=== PATIENT | female | born 1985 | race African-American/Black ===

== ENCOUNTER → 2021-05-08 10:29 | Outpatient (CLI) | payer OTHER, SELFPAY ==
--- NOTE | ~2021-05-08 | US_ITS ---
EXAMINATION: US OB >= 14 weeks Fetus DATE: 05/08/2021 11:05 INDICATION: Uncertain dates. TECHNIQUE: Real-time ultrasound of the pelvis was performed. COMPARISON: None. FINDINGS: There is a single living fetus in vertex presentation. The placenta is anterior, 1.3 cm from the cer vix. There is a small subchorionic hematoma. heart rate is 145 beats per minute (bpm). The amni otic fluid volume is subjectively normal. The following biometric data were obtained: Biparietal diameter (BPD): 3.3 cm; head circumference (HC): 11.9 cm; abdominal circumference (AC): 10 .4 cm; femur length (FL): 2.0 cm. These measurements are concordant. Estimated weight is 145 g +/- 22 g, which correlates with 85th percentile when 10/27/21 is used as estimated date of delivery. As single measurements, these parameters are each equal to the following estimated gestational ages w ith ranges of +/- 2 standard deviations: BPD: 16 weeks 2 days (15 weeks 1 days - 17 weeks 3 days). HC: 15 weeks 6 days (14 weeks 5 days - 17 weeks 1 days). AC: 16 weeks 3 days (14 weeks 5 days - 18 weeks 0 days). FL: 15 weeks 6 days (14 weeks 3 days - 17 weeks 2 days). estimated gestational age based solely on measurements from this exam is 16 weeks 1 days +/- 1 weeks 1 days. IMPRESSION: 1. Single living fetus in vertex presentation. 2. Estimated weight is 145 g +/- 22 g, which correlates with 85th percentile when 10/27/21 is used as estimated date of delivery. 3. Small subchorionic hematoma. 4. Low-lying placenta. Reviewed, dictated and finalized at location A. IMPRESSION: 1. Single living fetus in vertex presentation. 2. Estimated weight is 145 g +/- 22 g, which correlates with 85th percen tile when 10/27/21 is used as estimated date of delivery. 3. Small subchorionic hematoma. 4. Low-lying placenta.
== END ==
PROVIDERS: Visit Provider Nurse Practitioner
DX: Z36.87 Encounter for antenatal screening for uncertain dates (principal); Z3A.16 16 weeks gestation of pregnancy
CPT/HCPCS: 76805

== ENCOUNTER 2021-10-18 09:33 | Outpatient (RCR) | payer OTHER, SELFPAY ==
[2021-09-11 11:14] VITALS: BP 118/72; PULSE 106
[2021-09-16 18:22] VITALS: BP 117/71; PULSE 94
[2021-09-19 11:09] VITALS: BP 124/83; PULSE 102
[2021-09-22 16:58] VITALS: BP 129/80; PULSE 95
[2021-09-25 17:06] VITALS: BP 125/74; PULSE 92
--- NOTE | 2021-09-28 18:13 | PC.NURSE ---
Pt tilted to side.
[2021-09-28 18:33] VITALS: BP 123/73; PULSE 80
[2021-10-01 17:13] VITALS: BP 125/77; PULSE 86
[2021-10-05 17:14] VITALS: BP 120/81; PULSE 96
[2021-10-08 17:33] VITALS: BP 139/81; PULSE 96
[2021-10-12 17:54] VITALS: BP 134/87; PULSE 91
--- NOTE | ~2021-10-18 | US_ITS ---
EXAMINATION: US OB BPP wo non-stress EXAM DATE: 10/18/2021 11:45 INDICATION: GDM; non-reactive NST GDM, nonreactive stress test. 3rd trimester. TECHNIQUE: Pelvic obstetrical transabdominal sonogram was performed by a technologist. There are mu ltiple grayscale and Doppler images available for interpretation. Comparison is made to prior examina tion from 09/16/2021. FINDINGS: There is a single fetus identified in breech presentation with a heart rate of 134 beats pe r minute. The placenta is located in the anterior position. There is no sonographic evidence of retr oplacental hemorrhage identified. BIOPHYSICAL PROFILE (performed by the technologist) breathing (30 sec sustained breathing in 30 minutes): 2 out of 2 movement (3 gross body movements in 30 minutes): 2 out of 2 tone (one episode of okkfpxa-zlhpgbhmh-ekjndks limb movement): 2 out of 2 Amniotic fluid pocket (2 cm): 2 out of 2 Total score: 8 out of 8 IMPRESSION: 1. Single fetus with heart rate of 134 bpm. 2. Normal biophysical profile score of 8 out of 8. Reviewed, dictated and finalized at location A. ILEMAN
--- NOTE | ~2021-10-18 | US_ITS ---
EXAMINATION: US OB BPP wo non-stress DATE: 09/16/2021 18:04 INDICATION: Gestational diabetes, third trimester TECHNIQUE: Real-time pelvic ultrasound was performed. The interpreting radiologist was not present fo r the study. COMPARISON: 05/08/2021 FINDINGS: There is a single living fetus in breech presentation. The placenta is anterior. heart rate is 131 beats per minute (bpm). Biophysical profile performed by the technologist: breathing (30 sec sustained breathing in 30 minutes): 2 out of 2 movement (3 gross body movements in 30 minutes): 2 out of 2 tone (one episode of ddaqkhx-wxrtkzpiz-qdbxynt limb movement): 2 out of 2 Amniotic fluid pocket (2 cm): 2 out of 2 Total score: 8 out of 8 IMPRESSION: 1. Single living fetus in breech presentation. 2. Biophysical profile 8 out of 8. Reviewed, dictated and finalized at location A.
[2021-10-18 11:52] VITALS: BP 139/82; PULSE 87
== END 2021-12-10 09:36 | disposition home or self-care (01) ==
LOC: ANHOBOP 09:33
PROVIDERS: Visit Provider Obstetrics & Gynecology Gynecology
DX: O24.419 Gestational diabetes mellitus in pregnancy, unspecified control (principal); Z3A.34 34 weeks gestation of pregnancy; Z3A.35 35 weeks gestation of pregnancy; Z3A.36 36 weeks gestation of pregnancy; Z3A.37 37 weeks gestation of pregnancy; Z3A.38 38 weeks gestation of pregnancy
CPT/HCPCS: 59025; 76819; J2175; J2210; J2250; J2274; J3010

== ENCOUNTER 2021-10-18 09:33 | Outpatient (CLI) | payer OTHER, SELFPAY ==
[2021-10-18 10:32] LABS: Hemoglobin 12.5 g/dL (12.0-15.0); Immature Granulocyte Absolute 0.04 K/mm3 (0.00-0.031); Lymphocytes Absolute Auto 1.62 K/mm3 (0.9-3.2); Lymphocytes Percent Auto 38.9 % (18.3-44.2); Mean Corpuscular HGB Conc 32.9 g/dl (32-36); Mean Corpuscular Hemoglobin 31.6 pg (26-34); Mean Corpuscular Volume 96.2 fl (80-100); Mean Platelet Volume 9.7 fl (7.4-10.4); Monocytes Absolute Auto 0.3 K/mm3 (0.1-0.6); Monocytes Percent Auto 6.5 % (2.6-8.5); Neutrophils Absolute Auto 2.2 K/mm3 (1.3-6.7); Neutrophils Percent Auto 51.6 % (45.5-73.1); Platelet Count Result 197 k/mm3 (150-375); Red Blood Count 3.95 M/mm3 (4.2-5.4); Red Cell Distribution Width 14.1 % (11.5-14.5); White Blood Count 4.2 K/mm3 (4.5-10.0)
[2021-10-19 06:11] LABS: Rapid Plasma Reagin Non-Reactive (NonReactive)
== END 2021-10-18 09:34 | disposition home or self-care (01) ==
LOC: ANHOBOP 09:57
PROVIDERS: Visit Provider Obstetrics & Gynecology Gynecology
DX: Z01.818 Encounter for other preprocedural examination (principal)
CPT/HCPCS: 36415; 85025; 86592; 86850; 86900; 86901

== ENCOUNTER 2021-10-20 06:57 | Inpatient (IN) | payer OTHER, SELFPAY ==
--- NOTE | 2021-10-19 13:31 | PM.IMHP ---
H&P: HPI History of Present Illness Date/Time: 10/19/21 13:31 Patient is a 36 y/o @ 39 weeks by LMP c/w ultrasound for an EDC of 10/27/2021. Pregancy complicated by ulcerative colitis,abnormal pap asthma, AMA, A2GDM, and child fuller heart murmur. Patient GDM managed with diet and Insulin. Patient reports movement. Denies contraction or leakage of fluid. Chief Complaint: baby is breech and wants tubes tied Review of Systems Review of Systems: swelling and backpain PMFSH Past Medical History Medical History (Updated 10/19/21 @ 13:50 by Celio Grant MD) Asthma Breech presentation Heart murmur Request for sterilization Ulcerative colitis Family History Family History (Updated 10/19/21 @ 13:44 by Celio Grant MD) Father Diabetes mellitus Hypertension Social History Social History Substance use: never Spiritual care concerns: No Meds Home Medications and Allergies Home Medications Medication Instructions Recorded Confirmed Type PNV comb no.58-iron bisgly-FA 1 cap PO DAILY 10/12/21 10/18/21 History [] albuterol 90 mcg INHALATION DAILY PRN 10/12/21 10/18/21 History ferrous sulfate [Slow Fe] 142 mg PO DAILY 10/12/21 10/18/21 History mesalamine [Lialda] 1.2 g PO DAILY 10/12/21 10/18/21 History mometasone-formoterol [Dulera] 2 puff INHALATION DAILY 10/12/21 10/18/21 History montelukast [Singulair] 10 mg PO DAILY 10/12/21 10/18/21 History ergocalciferol (vitamin D2) 1,250 mcg PO 2XW 10/18/21 10/18/21 History [Vitamin D2] insulin NPH isoph U-100 human 8 unit SUBCUT HS 10/18/21 10/18/21 History [Humulin N NPH U-100 Insulin] insulin lispro [Humalog U-100 4 unit SUBCUT QACDINNER 10/18/21 10/18/21 History Insulin] Allergies Allergy/AdvReac Type Severity Reaction Status Date / Time adhesive tape Allergy Rash Verified 10/18/21 09:41 aspirin Allergy Hives Verified 10/12/21 17:23 orange juice Allergy Rash Verified 10/12/21 17:25 Sulfa (Sulfonamide Allergy Hives Verified 10/12/21 17:23 Antibiotics) Exam Const: Nutritional Appearance: well nourished and obese Orientation/consciousness: patient oriented x3 Resp: Auscultation: clear to auscultation bilaterally Cardio: Rate: regular rate Rhythm: regular rhythm GI: Auscultation: normal bowel sounds Other: Gravid uterus fundal height 39 Assessment and Plan Assessment and plan (1) Breech presentation: Code(s): O32.1XX0 - Maternal care for breech presentation, not applicable or unspecified Status: Acute Assessment and Plan: Patient scheduled for a primary csection with bilateral tubal ligation secondary to malposition of fetus and desires permanent sterilization . Risk and benefits reviewed with patient in detail including bleeding infection trauma damage to surrounding organs. patient agrees to proceed with surgery. (2) Request for sterilization: Code(s): Z30.2 - Encounter for sterilization Status: Acute
[2021-10-20] VITALS (57 sets, daily range): BP systolic 73–133; BP diastolic 48–93; PULSE 64–228; RESP 12–20; TEMP 36.2–36.7; O2SAT 83–100; BMI 37.8
--- NOTE | ~2021-10-20 | XR_ITS ---
EXAMINATION: XR abdomen/kub 1V DATE: 10/20/2021 11:18 INDICATION: Emergent section. Assess for retained instrumentation. TECHNIQUE: A supine view of the abdomen was obtained. COMPARISON: None. FINDINGS: Cephalad-most aspect of the abdomen at the level of the liver, stomach and spleen is excluded from th e resco-oa-vdid. No retained radiopaque foreign bodies identified in the visualized more caudal abdom en or pelvis. Small amount of gas and stool in the colon. A couple gas-filled but not dilated loops o f small bowel. Small amount of likely postoperative soft tissue gas in the inferior pelvis. IMPRESSION: 1. No retained radiopaque foreign bodies in the visualized abdomen or pelvis. The cephalad-most abdom en is excluded from the rbmsi-ou-ktov. Reviewed, dictated and finalized at location A. [employer] WORK[employer] IMPRESSION: 1. No retained radiopaque foreign bodies in the visualized abdomen or pelvis. T he cephalad-most abdomen is excluded from the ytzka-ml-sgqp.
[2021-10-20 07:44] LABS: Glucose Point of Care 86 mg/dl (65-105)
[2021-10-20] MEDS: LACTATED RINGERS 1,000 ML 125 ML IV CONT (07:49)
--- NOTE | 2021-10-20 07:58 | LDADM ---
This patient, Batsheva Cooper, was admitted to Labor/Delivery/Recovery 120 on 10/20/21 at 06:57. Plans for section, pain management and were discussed with patient. Patient/family oriented to hospital policies and general routines including ID bracelet, bed and alarms, visiting hours, pain management, procedures, bathroom and other care routines, personal items, smoking policy, room service/diet and guest tray routines, infant security routines, and visiting hours. Patient/Family are encouraged to report perceived risks to care and to ask questions if they do not understand what they are told or what they should do. See OBIX for further documentation.
--- NOTE | 2021-10-20 09:04 | WPDANESEPPF ---
Anes - Initial Pre Proc Eval Procedure: Operation Date: 10/20/21 09:00 Proposed Procedures p Primary Section with Bilateral Tubal Ligation - Celio Grant MD Date/Time: 10/20/21 09:04 Surgeon: Melanie Temple MD Pre Op Diagnosis: Patient Data Age: 36 Gender: F Height: 1.69 m Weight: 108 kg Last Vital Signs Pulse 85 10/20/21 08:02 BP 133/82 10/20/21 08:02 Allergies Allergy/AdvReac Type Severity Reaction Status Date / Time adhesive tape Allergy Rash Verified 10/18/21 09:41 aspirin Allergy Hives Verified 10/12/21 17:23 orange juice Allergy Rash Verified 10/12/21 17:25 Sulfa (Sulfonamide Allergy Hives Verified 10/12/21 17:23 Antibiotics) Home Medications Medication Instructions Recorded Confirmed Type PNV comb no.58-iron bisgly-FA 1 cap PO DAILY 10/12/21 10/18/21 History [] albuterol 90 mcg INHALATION DAILY PRN 10/12/21 10/18/21 History ferrous sulfate [Slow Fe] 142 mg PO DAILY 10/12/21 10/18/21 History mesalamine [Lialda] 1.2 g PO DAILY 10/12/21 10/18/21 History mometasone-formoterol [Dulera] 2 puff INHALATION DAILY 10/12/21 10/20/21 History montelukast [Singulair] 10 mg PO DAILY 10/12/21 10/18/21 History ergocalciferol (vitamin D2) 1,250 mcg PO 2XW 10/18/21 10/20/21 History [Vitamin D2] insulin NPH isoph U-100 human 8 unit SUBCUT HS 10/18/21 10/20/21 History [Humulin N NPH U-100 Insulin] insulin lispro [Humalog U-100 4 unit SUBCUT QACDINNER 10/18/21 10/20/21 History Insulin] famotidine [Pepcid] 20 mg PO DAILY PRN 10/20/21 10/20/21 History Laboratory Tests 10/20/21 07:41 POC Capillary Glucose 86 mg/dl mg/dl (65-105) Patient hx anesthesia problems: none Family hx anesthesia problems: none Results Review: All pre-operative results and documents have been reviewed as part of the pre-operative evaluation. [facility] Past Medical History Medical History Asthma Breech presentation Heart murmur Request for sterilization Ulcerative colitis Family History Family History Father Diabetes mellitus Hypertension Social History Social History Smoking status: Never smoker Substance use: never Spiritual care concerns: No Anes - Eval Final PreProcedure Day of Procedure 10/20/21 09:04 Patient weight: obese Heart: regular rate and rhythm Lungs: clear to auscultation Airway: Mallampati scale class II Neurological: alert and oriented Last oral intake: >/= 8 hours ASA classification: III Emergent: no Anesthetic plan: proceed Anesthesia type and monitoring: regional spinal and standard monitoring Results Review: All pre-operative results and documents have been reviewed as part of the pre-operative evaluation. Informed Consent: The patient's anesthetic plan and its attendant risks and benefits were discussed with the patient/family/POA. Questions were solicited and answers provided to the satisfaction of the patient/family/POA.
--- NOTE | 2021-10-20 09:09 | WPDHPUPDATE1 ---
History and Physical Update Update Date/Time: 10/20/21 09:09 History and Physical has been reviewed, including an updated exam of the patient. There are NO changes in the patient's condition. Risks, benefits, and alternatives have been discussed and questions answered. Patient agrees to proceed with procedure.
[2021-10-20] MEDS: LACTATED RINGERS 250 ML 999 ML IVPB (09:10)
[2021-10-20] MEDS: ceFAZolin 2 GM/D5W 50 ML 2 GM/50 ML BAG IVPB (09:13)
[2021-10-20] MEDS: KETOROLAC 30 MG/ML VIAL (*BKC) IV PUSH (09:45)
[2021-10-20] MEDS: METHYLERGONOVINE MALEATE 0.2 MG/ML VIAL IM (10:20)
[2021-10-20] MEDS: miSOPROStol 200 MCG TABLET 1000 MCG (10:50)
[2021-10-20 12:01] LABS: Hematocrit 34.6 % (37.0-47.0); Hemoglobin 11.5 g/dL (12.0-15.0)
[2021-10-20] MEDS: OXYTOCIN 30 UNITS/NS 500 ML 30 UNITS/500 ML BAG 125 UNITS IV CONT (12:30)
--- NOTE | 2021-10-20 13:49 | OBPPTRN ---
Patient transferred to post room # 281 via stretcher. Support person present. Oriented to unit, room, information board, rooming in, admission packet and security measures. Patient verbalizes understanding. PT introductions made and plan of care discussed per post op csection, pain management, bottle feeding, daily care activities. PT and Aunt Meggan both recipients of such instructions. Instructions per one to one discussion, mom baby care guide and demonstrations this shift. PT shows no barriers to learning at this time. PT verbalized understanding of such care.
[2021-10-20] MEDS: METHYLERGONOVINE MALEATE 0.2 MG TABLET PO (15:57)
[2021-10-20] MEDS: SIMETHICONE 80 MG TAB.CHEW PO ×2 (15:57→23:34)
[2021-10-20] MEDS: DOCUSATE SODIUM 100 MG CAPSULE PO (15:57)
[2021-10-20] MEDS: HYDROcodone/acetaminophen (*CRX) 5-325 MG TABLET 1 TAB PO ×2 (15:58→23:34)
[2021-10-20] MEDS: POLYSACCHARIDE IRON COMPLEX 150 MG CAPSULE PO (15:58)
[2021-10-20] MEDS: LORATADINE 10 MG TABLET PO (15:59)
--- NOTE | 2021-10-20 17:00 | SUR.PHASEI ---
1005 Dr. Grant left the OR after was complete. After a few minutes fundal massage expressed large amount of clots. Fundus firm, 1/U. Another fundal massage expressed more clots. Bleeding did appear to slow, fundus remained firm. Towels and chux changed, Called the OB front end web designer for Dr. Grant. Performed another fundal check and more clots expressed. Paged Dr. Grant, returned call at 1020 and stated she was on her way to the OR to check on pt. Dr Grant at bedside, fundal massage performed, fundus remains firm at U/U. Decision made to perform laparotomy. See MD note.
[2021-10-20] MEDS: DEXTROSE 5%/0.45% SOD CHL 1,000 ML 125 ML IV CONT (17:30)
--- NOTE | 2021-10-20 18:30 | PC.NURSE ---
PT had her home medications and inhaler sent to pharmacy for acknowledgement approval for usage while pt in hospital
--- NOTE | 2021-10-20 20:27 | PHAR ---
The patient's home med of Mesalamine 1.2gm has been verified. pranay foy #[phone]
[2021-10-20] MEDS: diphenhydrAMINE HCl CAP 25 MG CAPSULE PO (23:34)
[2021-10-20 23:48] LABS: Hematocrit 28.9 % (37.0-47.0); Hemoglobin 9.8 g/dL (12.0-15.0)
[2021-10-21] MEDS: HYDROcodone/acetaminophen (*CRX) 10-325 MG TABLET 1 TAB PO ×6 (03:17→23:44)
[2021-10-21 03:20] VITALS: BP 118/61; PULSE 78; RESP 16; TEMP 37.1; O2SAT 100
[2021-10-21 05:41] LABS: Basophils Percent Auto 0.3 % (0.2-1.2); Eosinophils Percent Auto 0.4 % (0-4.4); Hemoglobin 9.1 g/dL (12.0-15.0); Immature Granulocyte Absolute 0.05 K/mm3 (0.00-0.031); Immature Granulocyte Percent A 0.5 % (0-0.5); Lymphocytes Absolute Auto 1.46 K/mm3 (0.9-3.2); Lymphocytes Percent Auto 14.8 % (18.3-44.2); Mean Corpuscular HGB Conc 33.7 g/dl (32-36); Mean Corpuscular Hemoglobin 32.5 pg (26-34); Mean Corpuscular Volume 96.4 fl (80-100); Mean Platelet Volume 9.5 fl (7.4-10.4); Monocytes Absolute Auto 0.8 K/mm3 (0.1-0.6); Monocytes Percent Auto 8.3 % (2.6-8.5); Neutrophils Absolute Auto 7.4 K/mm3 (1.3-6.7); Neutrophils Percent Auto 75.7 % (45.5-73.1); Platelet Count Result 173 k/mm3 (150-375); Red Cell Distribution Width 13.7 % (11.5-14.5); White Blood Count 9.8 K/mm3 (4.5-10.0)
--- NOTE | 2021-10-21 08:05 | WPDANLDPN2 ---
Anes-Prog Note L&D Date/Time: 10/21/21 08:05 Comfortable throughout: section Neuraxial method: spinal Epidural/Spinal procedure site: clean & non-tender Neuro status: Neuro function grossly intact. Cardiovascular status: normal Respiratory status: normal Airway patency: baseline Mental status: baseline Post-Op hydration status: normal Vital Signs: Last Vital Signs Temp 37.1 C 10/21/21 03:20 Pulse 78 10/21/21 03:20 Resp 16 10/21/21 03:20 BP 118/61 10/21/21 03:20 Pulse Ox 100 10/21/21 03:20 Pain score (VAS): 3 I/O: Intake & Output 10/20/21 10/21/21 10/21/21 23:59 07:59 15:59 Intake Total 5500 2000 Output Total 1200 3400 Balance 4300 -1400 Post-procedural complaints: pruritis Patient feedback: Patient satisfied with anesthetic care.
--- NOTE | 2021-10-21 08:05 | WPDANLDNPN2 ---
Anes-Prog Note L&D-Neuraxial Date/Time: 10/21/21 08:05 Neuraxial medications: intrathecal PF morphine Opiod-related complaints: none Patient feedback: Patient satisfied with post-operative pain management.
[2021-10-21 08:35] VITALS: BP 109/71; PULSE 96; RESP 18; TEMP 36.6; O2SAT 100
--- NOTE | 2021-10-21 08:48 | P.OP_ITS ---
Procedure Note - Detailed Date of Procedure 10/21/21 Pre-op Diagnosis desires sterilizaition Post-op Diagnosis same Procedure Performed ltcs with bilateral salpingectomy Surgeon Celio Grant MD Anesthesia spinal Description of Procedure Patient was taken to the operating room with IV running and epidural in place. She was prepared and draped in a normal sterile fashion and placed in the supine position with a leftward tilt. A Pfannenstiel incision was made with scalpel carried out underlying layer of fascia. The fascial incision was then extended bilaterally with blunt dissection. The abdominal muscles were in the midline. There several dense adhesions of muscle fascial wall to the muscle and bladder. Sharp and blunt dissection done to carefully distinguish layers. . Bladder blade was inserted. a bladder flap was created with peons and metzenbaum scizzors. scalpel was used to make a transverse incision in the uterus and this was extended bluntly. The head was delivered atraumatically and the remainder of the fetus was delivered the cord was clamped and cut and the fetus was handed off to the waiting nurse at net developer architect. The cord blood was obtained for gases are obtained. The placenta was delivered spontaneously and the uterus was exteriorized and cleared of all clots and debris. Uterine incision was closed with 0 Monocryl in a running locked fashion a 2nd layer of the same suture she used to imbricate this incision. Tubes were grasped with babcocks and transected and suture ligated with 2-0 vicryl. Hemostasis was assured the uterus was returned to the abdomen. abdomen was irrigated with fluid cleared of all clots and debris. The muscles were examined for hemostasis the fascia was closed with 0 Vicryl in a running fashion the subcutaneous tissue was irrigated hemostasis assured and the skin was closed with 4-0 Vicryl on a Amol needle. Patient received 2g of Ancef prior to skin incision and patient was taken to the recovery room in stable condition. Estimated Blood Loss 325 Urine Output 50 Drains Yes Packing No Pathology yes Complications None Condition stable Disposition PACU
[2021-10-21] MEDS: METHYLERGONOVINE MALEATE 0.2 MG TABLET PO (08:52)
[2021-10-21] MEDS: DOCUSATE SODIUM 100 MG CAPSULE PO ×2 (08:52→16:12)
[2021-10-21] MEDS: POLYSACCHARIDE IRON COMPLEX 150 MG CAPSULE PO ×2 (08:52→16:12)
[2021-10-21] MEDS: MONTELUKAST SODIUM 10 MG TABLET PO (08:52)
[2021-10-21] MEDS: MULTIVIT/MIN/PREN/FOL AC/IRON TABLET 1 TAB PO (08:52)
[2021-10-21] MEDS: SIMETHICONE 80 MG TAB.CHEW PO ×4 (08:54→23:44)
--- NOTE | 2021-10-21 09:19 | W.PM.PROC2 ---
Procedure Note - Detailed Date of Procedure 10/22/21 Pre-op Diagnosis post /operative hemorrhage Post-op Diagnosis same Procedure Performed laparotomy Curettage Surgeon Celio Grant MD Anesthesia MAC and spinal Indications Vaginal Bleeding after surgery Findings Right tube bleeding, clots in lower uterine segment Description of Procedure Patient was still in OR when called to bedside for heavy vaginal bleeding. concerns for bleeding from tubal site or uterine incision. Abdomen was prepped and draped and incision made over prior incision and suture cut on fascia. Clots noted in the abdomen these were evacated and tubal bleeding on right tube. the uterus was exteriorized. Pedicle was clamped and suture ligated with 2-0 vicryl suture. Uterus remained boggy at the lower uterine segment. Patient recieved methergine IM and cytotec rectally. uterus begin to firm. Pedicle and incision hemostatic. The uterus was returned to abdomen. the abdomen was irrigated and the fascia was closed with 0 vicryl suture. subcutaneous tissue closed with plain gut and the skin closed with 4-0 vicryl . the patient monitored for additional bleeding before leaving and noted vaginal clots. these were evacuated bimanually. A sharp curettage was performed in all four quadrants of the uterus and bleeding slowed. Patient monitored for any more bleeding and patient was stable for transfer to PACU Estimated Blood Loss 2,100 IV Fluids 2,000 Urine Output 50 Drains Yes Packing No Pathology none sent Complications Other complications Condition stable Disposition PACU
[2021-10-21] MEDS: FLUTICASONE/SALMETEROL 115-21 MCG INHALER 1 PUFF 2 PUFF INHALATION (12:39)
[2021-10-21 19:30] VITALS: BP 113/72; PULSE 100; RESP 16; TEMP 36.8; O2SAT 100
[2021-10-22] MEDS: HYDROcodone/acetaminophen (*CRX) 10-325 MG TABLET 1 TAB PO ×3 (02:49→11:50)
[2021-10-22] MEDS: SIMETHICONE 80 MG TAB.CHEW PO (02:49)
[2021-10-22] MEDS: DOCUSATE SODIUM 100 MG CAPSULE PO (08:37)
[2021-10-22] MEDS: POLYSACCHARIDE IRON COMPLEX 150 MG CAPSULE PO (08:38)
[2021-10-22 08:42] VITALS: BP 126/76; PULSE 107; RESP 20; TEMP 36.8; O2SAT 100
--- NOTE | 2021-10-22 10:09 | PM.OBPNVD ---
OB - PN: Subj Subjective Date/time seen: 10/22/21 10:09 feeling well desires home pain controlled with prn meds OB - PN: Obj Data Labs CBC & Chem 7: 10/21/21 05:04 OB - PN A/P Assessment and Plan (1) Breech presentation: Code(s): O32.1XX0 - Maternal care for breech presentation, not applicable or unspecified Status: Acute Assessment and Plan: s/p LTCS with bilateral salpingectomy and post hemorrrhage. Stable desires home . f/u in 1 week. (2) Request for sterilization: Code(s): Z30.2 - Encounter for sterilization Status: Acute Time Spent With Patient Time: Total time spent is greater than 50% in coordination of care (as documented) at patient's floor/unit and/or counseling patient: Exam Narrative: inc : c/d/i ff below umbilicus
--- NOTE | 2021-10-22 10:27 | PC.NURSE ---
Patient viewed the discharge video Mother & Baby Care, The First Two Weeks . Patient was given the opportunity and encouraged to ask questions. Patient verbalized understanding of information shared and has been given the mother/baby guide for home reference.
[2021-10-24 10:15] VITALS: BP 109/65; PULSE 92; RESP 22; TEMP 37.2; O2SAT 99
--- NOTE | 2021-11-06 11:21 | PM.OBDSVD ---
DS: Admitting Diagnosis Discharge Date 10/22/21 Admitting Diagnosis desires tubal ligaion and breech presentation DS: Discharge Diagnosis Discharge Diagnosis (1) Request for sterilization: Code(s): Z30.2 - Encounter for sterilization Status: Acute (2) Breech presentation: Code(s): O32.1XX0 - Maternal care for breech presentation, not applicable or unspecified Status: Acute OB - DS: Summary OB Procedures : NST and Ultrasound OB Procedures Intrapartum: , Tubal ligation and Curettage OB Procedures: : None Peripartum Data Procedures: Procedures Operation Date: 10/20/21 09:00 Actual Procedure Side Surgeon p Section Not Applicable Celio Grant MD s Diagnostic Laparoscopy Pos Lap Not Applicable Celio Grant MD Time Spent with Patient Time attestation: Total time spent providing and/or coordinating discharge services: Exam Narrative: Inc C/d/i ff below umbilicus DS: Data Data Completed and Pending Completed studies during hospitalization: Pending at discharge 10/20/21 09:37 Surgical [PTH] Routine Surgical [PTH] Routine Surgical [PTH] Routine Discharge Plan Discharge Attending physician on discharge: Celio Grant Consulting providers: Stiven Cool ; Raimundo Lucero Discharging Clinician: Celio Grant Patient Disposition: Home, Self-Care Activity: may shower and pelvic rest Diet: as tolerated Discharge Instructions: Education: Mom and Baby Guide Given to: Mother Follow-Up: Call your delivering provider's office for an appointment to be seen in: 1 Week Mom and baby should come to the [facility] for the follow-up appointment. Appointment Date/Time: October 24, 2021 at 10:00 am What to expect at your follow-up visit: Physical Assessment Call [phone] if you are unable to keep your appointment time. BREAST CARE: * Wear a snug supportive bra. * For engorgement discomfort: Breast Feeding: * Apply warm moist washcloths * Express milk as needed to relieve engorgement * Wear loose clothing Bottle Feeding: * May apply ice packs * For sore nipples: * Identify correct latch-on * Apply warm moist washcloths before and after nursing * Air dry nipples after nursing * May apply Lansinoh cream to nipples ABDOMINAL INCISION: (if applicable) * Allow incision to air dry * Do NOT use lotions for powders on your incision * When showering, allow soap and water to run over the incision, but do not wash incision ACTIVITY: * Rest as much as possible. * Do not exercise or lift anything heavier than your baby (such as laundry or other children.) * Avoid stairs or driving as much as possible. * Do not put anything into the vagina. No douching, tampons, or sexual activity until seen by physician. NOTIFY PHYSICIAN IF YOU HAVE ANY QUESTIONS OR IF ANY OF THE FOLLOWING SYMPTOMS OCCUR: * If your episiotomy or incision becomes red, swollen, or more painful than what you have experienced in the hospital. * If your vaginal bleeding becomes foul smelling. * If your vaginal bleeding becomes more heavy than a period or if your bleeding changes from pink to bright red. However, you may pass an occasional walnut-sized clot once or twice for the first week . * If you experience a sharp, shooting pain in you calves. * If you discover a hard, reddened area on your breast or if you experience flu-like symptoms. DIET: * Eat regular, well-balanced meals. * Drink plenty of fluids daily. If , drink to thirst. Patient Instructions: Antibiotic Form Stand Alone Forms: General Discharge Information Follow-up/Referrals: Celio Grant MD [Physician] - Discharge Medications: New hydrocodone-acetaminophen 5-325 mg Tablet 1 tablet PO Q3H PRN (Reason: Moderate Pain (4-6)) Qty: 30 RF
== END 2021-10-22 12:12 | disposition home or self-care (01) | DRG 784 ==
LOC: ANHOB2 10-22 10:27 → ANHLDR 10-23 11:16 → ANHOB2 10-23 11:16
PROVIDERS: Obstetrics & Gynecology Gynecology; Admitting Provider Obstetrics & Gynecology; PCP Family Medicine Sports Medicine; Visit Provider Obstetrics & Gynecology
PROC: 10D00Z1 Extraction of Products of Conception, Low, Open Approach (ICD-10-PCS; CPT 59514; principal; 2021-10-20 09:00)
PROC: 10D00Z1 Extraction of Products of Conception, Low, Open Approach (ICD-10-PCS; CPT 49320; 2021-10-20 09:00)
DX: O24.424 Gestational diabetes mellitus in childbirth, insulin controlled (principal); O72.1 Other immediate postpartum hemorrhage; K51.90 Ulcerative colitis, unspecified, without complications; O32.1XX0 Maternal care for breech presentation, not applicable or unspecified; O99.824 Streptococcus B carrier state complicating childbirth; O69.82X0 Labor and delivery complicated by other cord entanglement, without compression, not applicable or unspecified; Z3A.39 39 weeks gestation of pregnancy; Z37.0 Single live birth; Z30.2 Encounter for sterilization
CPT/HCPCS: 36415; 59025; 74018; 76819; 82948; 85014; 85018; 85025; 86592; 86850; 86900; 86901; 88302; 88307; A9270; J0131; J0690; J1885; J2175; J2210; J2250; J2274; J2405; J2543; J2590; J2704; J3010; J7120

== ENCOUNTER 2021-12-19 10:13 | Outpatient (CLI) | payer OTHER, SELFPAY ==
[2021-12-19 10:28] LABS: Hematocrit 39.6 % (37.0-47.0); Hemoglobin 12.7 g/dL (12.0-15.0); Mean Corpuscular HGB Conc 32.1 g/dl (32-36); Mean Corpuscular Volume 93.6 fl (80-100); Mean Platelet Volume 8.7 fl (7.4-10.4); Platelet Count Result 313 k/mm3 (150-375); Red Blood Count 4.23 M/mm3 (4.2-5.4); Red Cell Distribution Width 12.5 % (11.5-14.5)
[2021-12-19 10:47] LABS: Alanine Aminotransferase 21 U/L (4-35); Albumin Level 4.3 g/dL (3.5-5.1); Alkaline Phosphatase 75 U/L (38-126); Anion Gap 10 mmol/L (8-16); Aspartate Amino Transferase 33 U/L (14-36); Bilirubin,Total 0.5 mg/dL (0.2-1.3); Blood Urea Nitrogen 12 mg/dL (7-17); Calcium 9.1 mg/dL (8.4-10.2); Carbon Dioxide 26 mmol/L (22-30); Chloride 104 mmol/L (98-107); Estimated Glomerular Filt Rate > 60; Glucose 135 mg/dL (65-110); Sodium 140 mmol/L (137-145)
== END 2021-12-19 10:14 | disposition home or self-care (01) ==
PROVIDERS: PCP Family Medicine Sports Medicine; Visit Provider Nurse Practitioner Family
DX: K51.90 Ulcerative colitis, unspecified, without complications (principal)
CPT/HCPCS: 36415; 80053; 85027

== ENCOUNTER 2022-02-19 11:07 | Outpatient (CLI) | payer OTHER, SELFPAY ==
--- NOTE | ~2022-02-19 | US_ITS ---
EXAMINATION: US transvaginal EXAM DATE: 02/19/2022 11:33 INDICATION: Abnormal uterine bleeding. bleeding. TECHNIQUE: Pelvic transvaginal sonogram was performed. There are multiple grayscale and Doppler imag es available for interpretation. Comparison is made to prior examination from . FINDINGS: Uterus measures 8.1 x 3.6 x 4.6 cm, and is morphologically normal. Endometrial stripe tevin sures 6 mm, within normal limits. There is no free pelvic fluid. Right adnexa: The ovary is not identified. There is no adnexal mass. Left adnexa: The ovary measures 2.2 x 1.3 x 2.5 cm and is morphologically normal. Ovarian vascular fl ow confirmed. IMPRESSION: Unremarkable pelvic ultrasound exam. Reviewed, dictated and finalized at location G.
== END 2022-02-19 11:08 ==
LOC: MICIMG 11:08
PROVIDERS: Visit Provider Nurse Practitioner
DX: N93.8 Other specified abnormal uterine and vaginal bleeding (principal)
CPT/HCPCS: 76830

== ENCOUNTER 2022-07-11 13:34 | Emergency (ER) | payer OTHER, MEDICAID, SELFPAY ==
--- NOTE | 2022-07-11 13:42 | ED.URI ---
HPI - URI/Sore Throat General Chief Complaint: Upper Respiratory Infection Stated Complaint: uri Time Seen by Provider: 07/11/22 13:42 Source: patient Mode of arrival: ambulatory Limitations: no limitations History of Present Illness HPI Narrative: Mrs. Cooper is a 37-year-old female patient presenting to the clinic today with complaints of possible upper respiratory infection x3 to 4 days. She reports no fever or chills. Has lost her voice and had a productive cough but this is improving. Reports mainly just sore throat and congestion at this time Related Data Home Medications Medication Instructions Recorded Confirmed albuterol 90 mcg/actuation aerosol 90 mcg inhalation DAILY PRN 10/12/21 07/11/22 inhaler Shortness Of Breath mometasone-formoterol HFA 100 2 puff inhalation DAILY 10/12/21 07/11/22 mcg-5 mcg/actuation aerosol inhaler (Dulera) albuterol sulfate 2 mg tablet 6.7 mg PO Q8H 12/10/21 07/11/22 montelukast 10 mg tablet 10 mg PO DAILY 12/10/21 07/11/22 (Singulair) fluticasone fur. 100 mcg-umeclid 1 inh inhalation Q24H 06/09/22 07/11/22 62.5 mcg-vilant 25 mcg inhalat.powder (Trelegy Ellipta) Allergies Allergy/AdvReac Type Severity Reaction Status Date / Time aspirin Allergy Unknown HIVES AND Verified 07/11/22 14:13 SWELLING adhesive tape Allergy Rash Verified 07/11/22 14:13 orange juice Allergy Rash Verified 07/11/22 14:13 Sulfa (Sulfonamide Allergy Hives Verified 07/11/22 14:13 Antibiotics) SULFA Allergy Unknown HIVES AND Uncoded 07/11/22 14:13 SWELLING Review of Systems Review of Systems: Pertinent positives per HPI. Patient denies any fever, chills, rash, headache, visual changes, dizziness, shortness of breath, chest pain, palpitations, nausea, vomiting, diarrhea, constipation, abdominal pain, or any urinary issues. 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 There is no relevant family history pertinent to the patient complaint. Exam Narrative: General: Well-developed, well nourished, in no apparent distress Head: Normocephalic, atraumatic Eyes: Pupils equally round and reactive to light bilaterally, EOM intact, sclera and conjunctive clear, no discharge, lids normal Ears: TMs intact and clear, ear canals clear, no drainage, grossly hearing normal. Nose: Nares patent, clear nasal discharge, moderate inflammation, no sinus tenderness. Mouth: Oropharynx without lesions or masses, good dentition, MMM. Oropharynx red, postnasal drip Neck: Supple, trachea midline, no enlargement of anterior or posterior cervical nodes, no thyroid masses or goiter palpable. Cardio: Regular rate and rhythm, s1 and s2 normal, no murmur appreciated. Resp: Clear to auscultation bilaterally anteriorly and posteriorly, no rhonchi, rales, wheezing or rubs Course Course Emergency Course: Port
[2022-07-11 14:30] VITALS: BP 143/98; PULSE 78; RESP 16; TEMP 36.3; O2SAT 100
== END 2022-07-11 15:00 | disposition home or self-care (01) ==
PROVIDERS: Emergency Provider Nurse Practitioner Family; PCP Family Medicine
DX: J06.9 Acute upper respiratory infection, unspecified (principal); J02.9 Acute pharyngitis, unspecified; R09.82 Postnasal drip; Z20.822 Contact with and (suspected) exposure to COVID-19; J45.909 Unspecified asthma, uncomplicated; R01.1 Cardiac murmur, unspecified
CPT/HCPCS: 87081; 87426; 87880; 99213; C9803; G0463

== ENCOUNTER 2023-03-22 18:24 | Emergency (ER) | payer OTHER, MEDICAID, SELFPAY ==
[2023-03-22 18:47] VITALS: BP 136/94; PULSE 87; RESP 14; TEMP 36.6; O2SAT 100
--- NOTE | 2023-03-22 19:05 | ED.URI ---
HPI - URI/Sore Throat General Chief Complaint: Upper Respiratory Infection Stated Complaint: Sinus Time Seen by Provider: 03/22/23 19:06 Source: patient, RN notes reviewed and old records reviewed Mode of arrival: ambulatory Limitations: no limitations History of Present Illness HPI Narrative: 29-year-old female presents to the [facility] with complaints of sinus congestion, purulent drainage. Symptoms started about 2 weeks. Symptoms became worse. Related Data Home Medications Medication Instructions Recorded Confirmed albuterol 90 mcg/actuation aerosol 90 mcg inhalation DAILY PRN 10/12/21 12/01/22 inhaler Shortness Of Breath albuterol sulfate 2 mg tablet 6.7 mg PO Q8H 12/10/21 12/01/22 levonorgestrel 0.15 mg-ethinyl 03/22/23 estradiol 30 mcg tablets,3 mos pack(91) Allergies Allergy/AdvReac Type Severity Reaction Status Date / Time aspirin Allergy Unknown HIVES AND Verified 03/22/23 18:37 SWELLING adhesive tape Allergy Rash Verified 03/22/23 18:37 orange juice Allergy Rash Verified 03/22/23 18:37 Sulfa (Sulfonamide Allergy Hives Verified 03/22/23 18:37 Antibiotics) SULFA Allergy Unknown HIVES AND Uncoded 03/22/23 18:37 SWELLING Review of Systems Review of Systems: All systems reviewed & are unremarkable except as noted in HPI and below Constitutional: Constitutional: Reports no additional constitutional complaints Eyes: Eyes: Reports no additional eye complaints ENT: Reports as per HPI, Reports nasal congestion and Reports sinus pressure Cardiovascular: Cardiovascular: Reports no additional cardiovascular complaints, Denies chest pain and Denies dyspnea Respiratory: Respiratory: Reports no additional respiratory complaints, Denies chest congestion, Denies cough and Denies dyspnea Gastrointestinal: Gastrointestinal: Reports no additional gastrointestinal complaints, Denies abdominal pain, Denies nausea and Denies vomiting Musculoskeletal: Musculoskeletal: Reports no additional musculoskeletal complaints Integumentary/Breasts: Skin/Breast: Reports system reviewed and no additional complaints, except as docu Neurologic: Reports system reviewed and no additional complaints, except as documented Psychiatric: Psychiatric: Reports no additional psychiatric complaints Allergic/Immunologic: Allergic/Immunologic: Reports no additional allergic/immunologic complaints PMFSH Past Medical History Medical History Asthma Breech presentation Heart murmur Leukopenia Piriformis syndrome Request for sterilization Ulcerative colitis Surgical History Surgical History History of 2020 Family History Family History Father Diabetes mellitus Hypertension Cerebrovascular accident Heart disease Grandparent Diabetes mellitus Hypertension Heart disease Social History Social History Smoking status: Never smoker Second hand tobacco smoke exposure: No Alcohol intake: never Substance use: never Lack of Transportation: No Lack of Food: Never True Current Housing: I Have Housing Concerned About Future Housing: No Difficulty Paying Gas/Electric Bills: No Difficulty Paying for Meds: No Currently Unemployed: No Education: Associate Degree Difficulty w/ Childcare or Family Care: No Living arrangements: with family 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 There is
== END 2023-03-22 19:16 | disposition home or self-care (01) ==
PROVIDERS: Emergency Provider Nurse Practitioner; PCP Family Medicine
DX: J32.9 Chronic sinusitis, unspecified (principal); Z20.822 Contact with and (suspected) exposure to COVID-19; J45.909 Unspecified asthma, uncomplicated; R01.1 Cardiac murmur, unspecified
CPT/HCPCS: 87426; 87804; 99213; C9803; G0463

== ENCOUNTER → 2023-06-24 10:20 | Outpatient (CLI) | payer OTHER, MEDICAID, SELFPAY ==
--- NOTE | ~2023-06-24 | XR_ITS ---
XR lumbar spine 2-3V DATE: 06/24/2023 10:33 INDICATION: No injury. Low back pain for months TECHNIQUE: AP, lateral, coned lateral lumbosacral views COMPARISON: None FINDINGS: No fracture or spondylolisthesis. The lumbar pedicles are intact. Lumbar and sacral intersp aces are well preserved. The sacral iliac joints are intact. There is a prominent amount of fecal material in the ascending colon, hepatic flexure. IMPRESSION: Negative lumbar spine Reviewed, dictated and finalized at location B. IMPRESSION: Negative lumbar spine
== END ==
PROVIDERS: PCP Physician Assistant Medical; Visit Provider Physician Assistant Medical
DX: M54.50 Low back pain, unspecified (principal)
CPT/HCPCS: 72100

== ENCOUNTER 2023-09-29 09:19 | Day surgery (SDC) | payer OTHER, MEDICAID, SELFPAY ==
--- NOTE | 2023-09-28 15:17 | WPDANESEPPF ---
Anes - Initial Pre Proc Eval Procedure: Operation Date: 09/29/23 11:30 Proposed Procedures p Colonoscopy - Olman Lehman MD Date/Time: 09/28/23 15:17 Surgeon: Olamn Lehman MD Pre Op Diagnosis: Proctosigmoiditis Patient Data Age: 38 Gender: F Height: 1.68 m Weight: 103.873 kg Allergies Allergy/AdvReac Type Severity Reaction Status Date / Time aspirin Allergy Unknown HIVES AND Verified 09/29/23 10:18 SWELLING adhesive tape Allergy Rash Verified 09/29/23 10:18 orange juice Allergy Rash Verified 09/29/23 10:18 Sulfa (Sulfonamide Allergy Hives Verified 09/29/23 10:18 Antibiotics) Home Medications Medication Instructions Recorded Confirmed Type albuterol 90 mcg/actuation aerosol 90 mcg inhalation DAILY PRN 10/12/21 09/29/23 History inhaler Shortness Of Breath tramadol 50 mg tablet 50 mg PO Q6H PRN pain #30 tabs 12/01/22 09/29/23 Rx levonorgestrel 0.15 mg-ethinyl 30 tablet PO DAILY 03/22/23 09/29/23 History estradiol 30 mcg tablets,3 mos pack(91) montelukast 10 mg tablet 10 mg PO DAILY #90 tabs 08/28/23 09/29/23 Rx (Singulair) mesalamine 1.2 gram tablet,delayed See Rx Instructions .Route .COMPLEX 09/06/23 09/29/23 History release (Lialda) mometasone-formoterol HFA 100 2 puff inhalation DAILY 09/06/23 09/29/23 History mcg-5 mcg/actuation aerosol inhaler (Dulera) Patient hx anesthesia problems: none Family hx anesthesia problems: none Results Review: All pre-operative results and documents have been reviewed as part of the pre-operative evaluation. [facility] Past Medical History Medical History Asthma Breech presentation Heart murmur Leukopenia Piriformis syndrome Request for sterilization Ulcerative colitis Surgical History Surgical History History of 2020 Family History Family History Father Diabetes mellitus Hypertension Cerebrovascular accident Heart disease Grandparent Diabetes mellitus Hypertension Heart disease Social History Social History Smoking status: Never smoker Second hand tobacco smoke exposure: No Alcohol intake: current Drinks per week: 2 Substance use: never Substance use type: does not use Lack of Transportation: No Lack of Food: Never True Current Housing: I Have Housing Concerned About Future Housing: No Difficulty Paying Gas/Electric Bills: No Difficulty Paying for Meds: No Currently Unemployed: No Education: Associate Degree Difficulty w/ Childcare or Family Care: No Living arrangements: alone 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 (if verbalized by the patient): Female Sexual Orientation (if Verbalized by the Patient): Straight or Heterosexual Spiritual care concerns: No Agree to blood products: Yes Anes - Eval Final PreProcedure Day of Procedure 09/28/23 15:17 Patient weight: obese Heart: regular rate and rhythm Lungs: clear to auscultation Airway: Mallampati scale class II Neurological: alert and oriented Last oral intake: >/= 8 hours ASA classification: III Emergent: no Anesthetic plan: proceed Anesthesia type and monitoring: general GIVS and standard monitoring Results Review: All pre-operative results and documents have been reviewed as part of the pre-operative evaluation. Informed Consent: The patient's anesthetic plan and its attendant risks and benefits were discussed with the patient/family/POA. Questions were solicited and answers provided to the satisfaction of the patient/family/POA.
[2023-09-29 10:22] VITALS: BP 169/93; PULSE 92; RESP 16; TEMP 37.1; O2SAT 100
[2023-09-29] MEDS: LACTATED RINGERS 1,000 ML 150 ML IV CONT (10:30)
--- NOTE | 2023-09-29 10:42 | PM.HPGS ---
History of Present Illness History of Present Illness Consent: Risks, benefits, and alternatives have been discussed and questions answered. Patient agrees to proceed with procedure. Chief complaint: Proctosigmoiditis Narrative: Batsheva Cooper is a 38 year old female presents for screening colonoscopy. Patient is known to have proctosigmoiditis. Patient currently stable. She takes Lialda 4.8g p.o. daily. She very infrequently will have bouts of diarrhea and urgency. Patient notices this primarily after dietary indiscretion. Patient's family history is noncontributory. Patient presents for screening surveillance colonoscopy. Last exam was 4 years ago. Review of Systems Review of Systems: Review of systems noncontributory. [facility] Past Medical History Medical History Asthma Breech presentation Heart murmur Leukopenia Piriformis syndrome Request for sterilization Ulcerative colitis Surgical History Surgical History History of 2020 Family History Family History Father Diabetes mellitus Hypertension Cerebrovascular accident Heart disease Grandparent Diabetes mellitus Hypertension Heart disease Social History Social History Smoking status: Never smoker Second hand tobacco smoke exposure: No Alcohol intake: current Drinks per week: 2 Substance use: never Substance use type: does not use Lack of Transportation: No Lack of Food: Never True Current Housing: I Have Housing Concerned About Future Housing: No Difficulty Paying Gas/Electric Bills: No Difficulty Paying for Meds: No Currently Unemployed: No Education: Associate Degree Difficulty w/ Childcare or Family Care: No Living arrangements: alone 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 (if verbalized by the patient): Female Sexual Orientation (if Verbalized by the Patient): Straight or Heterosexual Spiritual care concerns: No Agree to blood products: Yes Meds Home Medications and Allergies Home Medications Medication Instructions Recorded Confirmed Type albuterol 90 mcg/actuation aerosol 90 mcg inhalation DAILY PRN 10/12/21 09/29/23 History inhaler Shortness Of Breath tramadol 50 mg tablet 50 mg PO Q6H PRN pain #30 tabs 12/01/22 09/29/23 Rx levonorgestrel 0.15 mg-ethinyl 30 tablet PO DAILY 03/22/23 09/29/23 History estradiol 30 mcg tablets,3 mos pack(91) montelukast 10 mg tablet 10 mg PO DAILY #90 tabs 08/28/23 09/29/23 Rx (Singulair) mesalamine 1.2 gram tablet,delayed See Rx Instructions .Route .COMPLEX 09/06/23 09/29/23 History release (Lialda) mometasone-formoterol HFA 100 2 puff inhalation DAILY 09/06/23 09/29/23 History mcg-5 mcg/actuation aerosol inhaler (Dulera) Allergies Allergy/AdvReac Type Severity Reaction Status Date / Time aspirin Allergy Unknown HIVES AND Verified 09/29/23 10:18 SWELLING adhesive tape Allergy Rash Verified 09/29/23 10:18 orange juice Allergy Rash Verified 09/29/23 10:18 Sulfa (Sulfonamide Allergy Hives Verified 09/29/23 10:18 Antibiotics) Vital Signs Vital Signs - 24 hr 09/29/23 10:22 Temperature 98.8 F Pulse Rate 92 Respiratory Rate 16 Blood Pressure 169/93 H Pulse Oximetry 100 Oxygen Delivery Room Air Exam Narrative: Physical exam reveals patient to be alert. Vital signs stable. HEENT exam is unremarkable. Patient is anicteric. Lungs are clear to auscultation and percussion. Heart is without murmur sounds. Abdomen bowel sounds are present soft nontender with no organomegaly. Digital and external rectal exam is normal. Assessment and Plan Assessment and plan (1) Proctosigmoiditis: Code(s): K63.
[2023-09-29 11:16] VITALS: BP 128/79; PULSE 96; RESP 16; O2SAT 100
[2023-09-29 11:26] VITALS: BP 126/84; PULSE 85; RESP 16; O2SAT 100
[2023-09-29 11:36] VITALS: BP 134/89; PULSE 84; RESP 16; O2SAT 100
--- NOTE | 2023-09-29 12:40 | WPDANESPN ---
Anes - Prog Note Post-Op Date/Time: 09/29/23 12:40 Cardiovascular status: normal Respiratory status: normal Airway patency: baseline Mental status: baseline Post-Op hydration status: normal Vital Signs: Last Vital Signs Temp 37.1 C 09/29/23 10:22 Pulse 84 09/29/23 11:36 Resp 16 09/29/23 11:36 BP 134/89 09/29/23 11:36 Pulse Ox 100 09/29/23 11:36 O2 Del Method Room Air 09/29/23 11:36 Pain Score (VAS): 0 I/O: Intake & Output 09/28/23 09/29/23 09/29/23 23:59 07:59 15:59 Intake Total 150 Balance 150 Post-procedural complaints: none Patient Feedback: Patient satisfied with anesthetic care. Other Findings: Patient vital signs back to baseline. Patient denies nausea and vomiting. Patient's pain under control. Patient OK for discharge.
== END 2023-09-29 11:52 | disposition home or self-care (01) ==
PROVIDERS: PCP Physician Assistant Medical; Visit Provider Internal Medicine Gastroenterology
PROC: 0DJD8ZZ Inspection of Lower Intestinal Tract, Via Natural or Artificial Opening Endoscopic (ICD-10-PCS; CPT 45378; principal; 2023-09-29 11:30)
DX: Z87.19 Personal history of other diseases of the digestive system (principal); K64.8 Other hemorrhoids
CPT/HCPCS: 45378

== ENCOUNTER → 2023-10-10 16:27 | Outpatient (CLI) | payer OTHER, MEDICAID, SELFPAY ==
--- NOTE | ~2023-10-10 | MM_ITS ---
EXAMINATION: MM screening do BI w ryan HISTORY: Screening mammogram TECHNIQUE: Craniocaudal and mediolateral oblique 3-D tomosynthesis images were obtained and synthetic 2-D images were generated. CAD analysis was submitted and interpreted. COMPARISON: 01/25/2018 BREAST PARENCHYMAL COMPOSITION: There are scattered areas of fibroglandular density. FINDINGS: No suspicious mass, calcification, or architectural distortion are identified in either kavita ast to suggest malignancy. There has been no suspicious interval change. IMPRESSION: 1. No mammographic evidence of malignancy. 2. Recommend routine screening mammography in one year. BI-RADS Category 1: Negative Reviewed, dictated and finalized at location A. NT SOURCING SPECIALIST
== END ==
PROVIDERS: PCP Nurse Practitioner; Visit Provider Physician Assistant Medical
DX: Z12.31 Encounter for screening mammogram for malignant neoplasm of breast (principal)
CPT/HCPCS: 77063; 77067

== ENCOUNTER 2025-02-08 12:50 | Outpatient (CLI) | payer OTHER, SELFPAY ==
--- OUTSIDE RECORDS SUMMARY | 2025-02-08 12:58 | XMS_ITS | Clinical Summary ---
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 Gender Identity Not on file Sexual Orientation Not on file Plan of Treatment Health Maintenance Due Date Last Done Comments DTAP/TDAP/TD VACCINES (1 - Tdap) 2003 HEPATITIS B VACCINES (1 of 3 - 19+ 3-dose series) 2003 CERVICAL CANCER SCREENING 11/14/2020 11/14/2017 BREAST CANCER SCREENING 2024 INFLUENZA VACCINE (#1) 2024 12/09/2021 HPV VACCINES Aged Out No longer eligi ble based on patient's age to complete this topic PNEUMOCOCCAL VACCINE 0-49 YEARS Aged Out No longer eligible based on patient's age to complete this topic Insurance Care Teams Central Supply Tech Relationship Specialty Start Date End Date Davonte Leonard MD [address] [place] [address] PCP - General Family Practice 07/06/21
--- OUTSIDE RECORDS SUMMARY | 2025-02-08 12:58 | XMS_ITS | Patient Health Record ---
Author Organization [facility] Address [address] [place], [place] [id number] Care Team Providers Care Loop Sewer Name Role Phone Magali Huang Primary Care Provider Unavailabl e Allergies Allergen (clinical drug ingredient) Drug/Non Drug Allergy documented on EMR Reaction Allergy Type Onset Date Status Substance with sulfonamide structure and antibacterial mechanism of action (substance) Sulfa Antibiotics Unknown Drug Allergy Active Tape Unknown Allergy Active Reason For Referral No Information Medications Medication SIG (Take, Route, Frequency, Duration) Notes Start Date End Date Status Dulera 100-5 MCG/ACT Inhalation for 30 Days Active Montelukast Sodium 10 MG Oral for 30 Days Active Levonorgest-Eth Estrad 91-Day 0.15-0.03 MG Oral for 91 Days Acti ve Mesalamine 1.2 GM Oral for 30 Days Active Plan Of Treatment Pending Test Test Name Order Date Liver Function Test (LFT) 05/13/2023 Insurance Providers Payer Name Payer Address Payer Phone Subscriber Number Group Number Insured Name Patient Relationship to Insured Coverage Start Date Coverage End Date [facility] [address] [address] [place] [id number] SHANICE LOZOYA Self - patient is the insured Medical (General) History Medical History History ICD Code Asthma/Bronchitis Leg/Feet cramps Surgical History Surgery Date(Month/Year) section 09/2022
--- OUTSIDE RECORDS SUMMARY | 2025-02-08 12:58 | XMS_ITS | Clinical Summary ---
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 Gender Identity Not on file Sexual Orientation Not on file Plan of Treatment Health Maintenance Due Date Last Done Comments Hepatitis C Virus (HCV) Screening 1984 TdaP Immunization 1984 Hepatitis B Immunization (1 of 3 - 19+ 3-dose series) 2003 Pap Smear 2005 Cervical Cancer Screening (CCS) 2014 HPV/Cotest 2014 Discussion re Starting/Frequ ency of Mammograms 2024 Influenza Immunization (#1) 2024 SARS-COV-2 Immunization ( season) 2024 Respiratory Syncytial Virus (RSV) Immunization (Adult) (1 - 1-dose 75+ series) 2059 Meningococcal Immunization (ACWY) Aged Out No longer eligible based on patient's age to complete this topic Pneumococcal Immunization Combined Aged Out No longer eligible based on patient's age to complete this topic Rotavirus Immunization Aged Out No lo nger eligible based on patient's age to complete this topic
--- OUTSIDE RECORDS SUMMARY | 2025-02-08 12:58 | XMS_ITS | Encounter Summary ---
Author Organization [facility] Address 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 - Medical [facility] [address] [facility] [address] [address] Juve Patel Social History Tobacco Use Types Packs/Day Years Used Date Smoking Tobacco: Never Assessed Comments Unknown Sex and Gender Information Value Date Recorded Sex Assigned at Not on file 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
--- OUTSIDE RECORDS SUMMARY | 2025-02-08 12:58 | XMS_ITS | Encounter Summary ---
Author Organization [facility] Address 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 [facility] [id number] [facility] [address] [address] Juve Patel Social History Tobacco Use Types Packs/Day Years Used Date Smoking Tobacco: Never Assessed Comments Unknown Sex and Gender Information Value Date Recorded Sex Assigned at Not on file 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
--- OUTSIDE RECORDS SUMMARY | 2025-02-08 12:59 | XMS_ITS | Encounter Summary ---
Author Organization [facility] Address [address] [place] [address] Care Team Providers Care Dye Stand Loader Name Role Phone Davonte Leonard MD Primary Care Provider [phone] Encounter Details Date Type Department Care Team (Late st Contact Info) Description 01/17/2003 Outpatient Historical [facility] - [address] [place] [address] Osmin Perez MD [address] [place] [phone] Social History Tobacco Use Types Packs/Day Years Used Date Smoking Tobacco: Never Assessed Comments Unknown Sex and Gender Information Value Date Recorded Sex Assigned at Not on file 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
--- OUTSIDE RECORDS SUMMARY | 2025-02-08 12:59 | XMS_ITS | Data Portability ---
Author Organization [facility] Address [address] [place] [address] Assessment No assessment recorded. Plan of Treatment Reminders Order Date Submit Date Provider Last Modified By Organization Details Last Modified Time Details Appointments None recorded. Lab rapid strep group A, throat 2015 016 In-Office Order, Internal Use Only DO Not Attach Compendium DO Not Attach Compendium, Do Not Delete/merge, [id number] 11:06:25 Referral None recorded. Procedures None recorded. Surgeries None recorded. Imaging None recorded. Medication Orders acetaminop hen 500 mg capsule 2015 016 [place] [address], [address], 6 11:31:28 amoxicilli n 500 mg tablet 2015 016 [id number] [facility] [address], [address], 6 11:06:25 Diflucan 150 mg tablet 2015 016 [id number] [facility] [address], [address], 6 11:06:25 Adult Robitussin Peak Cold DM Max 10 mg-200 mg/5 mL oral liquid 2015 016 [email or web address] [facility] [address] [place], [address], 6 11:06:25 Patient TargetsNo targets recorded. Patient Instructions Encounter Date Encounter Id Patient Instructions Last Modified By Organization Details Last Modified Time 03/20/2016 [id number] strep throat: care instructions [email or web address] Not available 03/22/2016 11:16:09 Reason for Referral None Reported. Results Created Date Observation Date Name Description Value Unit Range Abnormal Flag Note LastModifiedBy Organization Detail LastModifiedTime 03/20/20 16 03/20/2016 rapid strep group A, throa t Strep positi ve Not Available In-Office Order Internal Use Only DO Not Attach Compendium DO Not Attach Compendium, Do Not Delete/merge, [id number] 03/20/2016 10:57:29 Result Notes None recorded. Problems Name Problem SNOMED Code Status Onset Date Resolution Date Notes Provider Name and Address Organization Details Recorded Time Streptococcal sore throat 67405702 Active Radha Garry barr [facility] 6 11:06:25 Problem Notes None recorded. Medical Equipment None Reported. Allergies Allergen ID Allergen Name Allergen Category Reaction Reaction Severity Criticality Documentation Date Start Date Code Code System Note Provider Name and Address Organization Details Recorded Time 61878 aspirin medicatio n Not available Not available Not available 03/20/2016 1191 RxNorm Not Available Not Available Not Available Medications Name Sig Start Date Stop Date Status Note LastModified by Organization Details LastModified Time Diflucan 150 mg tablet Take 1 tablet by oral route after completing antibiotics . 2015 active Not Available Not Available Not Avai lable amoxicillin 500 mg tablet Take 1 tablet every 12 hours by oral route for 10 days. 2015 active Not Available Not Available Not Avai lable acetaminophe n 500 mg capsule Take 2 capsules every 6 hours by oral route as needed for 10 days. 2015 active Not Available Not Available Not Avai lable Adult Robitussin Peak Cold DM Max 10 mg-200 mg/5 mL oral liquid Take 5 mL every 4-6 hours by oral route as needed. 2015 active Not Available Not Available Not Avai lable Vitals Date Recorded Body height Heart rate Body temperature Body weight Respiratory rate Body mass index (BMI) Systolic blood pressure Diastolic blood pressure Provider Name and Address Organization Details Last Updated DateTime 6 167.64 cm 96 /min 99.2 [degF] 29700.6 6475 g 20 /min 28.2 kg/m2 140 mm[Hg] 80 mm[Hg] Cliff Titus [facility] 6 10:42:53 Social History None recorded. Functional Status None recorded. Mental Status None recorded. Family History Nothing Reported. Medical History No medical history recorded. Gynecological HistoryNo gynecological history recorded. Obstetrics History GPAL:G 0 P 0 0 0 0 Past Encounters Encounter ID Performer Location Encounter Start Date Encounter Closed Date Diagnosis/Indication Diagnosis SNOMED-CT Code Diagnosis ICD10 Code Diagnosis Note [id number] Radha [address] [address] 03/20/2016 10:25:41 03/20/2016 13:12:00 Streptococcal sore throat 51534798 J02.0 Health Concerns Section Related Observation LastModified by Organization Detai ls LastModified Time None Recorded Concern Status LastModified by Organization Details LastModified Time None Recorded Advance Directives Directive None Recorded Payers Encounter Date Sequence Insurance Name Policy Number Policy Hagan Covered Member ID Hagan Member ID Guarantor Name 03/20/2016 SLIDING FEE SCHEDULE - DISCOUNT Batsheva Cooper Notes Date Note Type Note Provider Name and Address Organization Details Recorded Time 03/20/2016 text/html Throat PainReported bypatient.Quality: dull; aching; sore Severity:moderate Context:allergies; sinus infection Alleviating Factors:antihistam griselda Associated Symptoms:coughing with mild sputum;nasal congestion;postnas al drip Radha Castañeda [facility] 03/20/2016 13:10:37 OBGyn Episode No OBEpisode recorded.
--- OUTSIDE RECORDS SUMMARY | 2025-02-08 12:59 | XMS_ITS | Encounter Summary ---
Author Organization [facility] Address [address] [place] [address] Care Team Providers Care Pit Inspector Name Role Phone Davonte Leonard MD Primary Care Provider [phone] Encounter Details Date Type Department Care Team (Late st Contact Info) Description 06/14/2002 Outpatient Historical [facility]ONER - [address] [place] [address] Osmin Peerz MD [address] [place] [phone] Social History Tobacco Use Types Packs/Day Years Used Date Smoking Tobacco: Never Assessed Comments Unknown Sex and Gender Information Value Date Recorded Sex Assigned at Not on file 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
[2025-02-08 13:49] LABS: Alanine Aminotransferase 30 U/L (6-35); Albumin Level 4.4 g/dL (3.5-5.1); Alkaline Phosphatase 56 U/L (38-126); Anion Gap 11 mmol/L (4-12); Aspartate Amino Transferase 24 U/L (14-36); Bilirubin,Total 0.7 mg/dL (0.2-1.3); Blood Urea Nitrogen 13 mg/dL (7-17); Calcium 8.7 mg/dL (8.4-10.2); Carbon Dioxide 22 mmol/L (22-30); Chloride 106 mmol/L (98-107); Cholesterol 147 mg/dL (0-200); Estimated Glomerular Filt Rate > 60; Glucose 80 mg/dL (65-110); HDL Direct 55 mg/dL; Potassium 4.1 mmol/L (3.4-5.0); Sodium 139 mmol/L (137-145); Triglycerides 80 mg/dL (<150)
[2025-02-08 14:00] LABS: LDL Cholesterol Direct 68 mg/dL
[2025-02-08 14:17] LABS: Hemoglobin A1C 5.9 % (<5.7)
== END 2025-02-08 12:51 | disposition home or self-care (01) ==
PROVIDERS: PCP Family Medicine; Visit Provider Family Medicine
DX: R73.03 Prediabetes (principal); E78.2 Mixed hyperlipidemia
CPT/HCPCS: 36415; 80053; 80061; 83036

== ENCOUNTER 2025-04-08 08:56 | Emergency (ER) | payer OTHER, SELFPAY ==
[2025-04-08 09:16] VITALS: BP 141/91; PULSE 80; RESP 18; TEMP 36.3; O2SAT 100
[2025-04-08 09:41] LABS: EDSTREPNEGPOS1 Negative (Negative)
--- NOTE | 2025-04-08 09:52 | ED_ITS ---
HPI - URI/Sore Throat General Chief Complaint: Upper Respiratory Infection Stated Complaint: flu symptoms Time Seen by Provider: 04/08/25 09:40 Source: patient and RN notes reviewed Mode of arrival: ambulatory Limitations: no limitations History of Present Illness HPI Narrative: 39-year-old female presents Express Care complaining of upper respiratory symptoms for 6 days. Patient reports having a sore throat, productive cough, sinus pressure, voice hoarseness, and congestion. Patient has been taking DayQuil and NyQuil and wygv-awd-wpsjnah cough medicine for her symptoms. Patient says her cough is worse at night and she is having a hard time sleeping due to cough. Patient denies any fevers, body aches, chills, earache, chest pain, shortness of breath. She denies any significant past medical history pa xiao stated that last night her symptoms got suddenly worse reporting worsening congestion and having yellow nasal discharge. Related Data Home Medications ?Medication ?Instructions ?Recorded ?Confirmed ?Last Taken ?Type levonorgestrel 0.15 mg-ethinyl 30 tablet PO DAILY 03/22/23 02/12/25 09/29/23 History estradiol 30 mcg tablets,3 mos pack(91) Allergies Allergy/AdvReac Type Severity Reaction Status Date / Time aspirin Allergy Unknown HIVES AND Verified 02/12/25 14:15 SWELLING adhesive tape Allergy Rash Verified 02/12/25 14:15 orange juice Allergy Rash Verified 02/12/25 14:15 Sulfa (Sulfonamide Allergy Hives Verified 02/12/25 14:15 Antibiotics) metformin AdvReac Mild Diarrhea Verified 02/12/25 14:28 Review of Systems Review of Systems: CONSTITUTIONAL: Denies fever, chills, body aches or sweats. EYES: Denies visual changes, redness, or discharge. ENT: Denies rhinorrhea, or otalgia. Positive for congestion sore throat CARDIOVASCULAR: Denies chest pain, palpitations, or edema. RESPIRATORY: Positive for productive cough. Negative for dyspnea. GASTROINTESTINAL: Denies abdominal pain, nausea, vomiting, or diarrhea. GENITOURINARY: Denies dysuria or hematuria. SKIN: Denies rash or itching. MUSCULOSKELETAL: Denies back pain, joint pain, or myalgia. NEUROLOGIC: Denies headache, numbness, or weakness. PSYCHIATRIC: Denies anxiety or depression. All other systems reviewed are negative, except as documented in HPI. [facility] Past Medical History Medical History Acid indigestion Diarrhea Piriformis syndrome Leukopenia Request for sterilization Breech presentation Heart murmur Asthma Ulcerative colitis Surgical History Surgical History History of 2020 Family History Family History Father Diabetes mellitus Hypertension Cerebrovascular accident Heart disease Grandparent Diabetes mellitus Hypertension Heart disease Social History Social History Smoking status: Never smoker Second hand tobacco smoke exposure: No Alcohol intake: current Drinks per week: 2 Substance use: never Substance use type: does not use Lack of Transportation: No Lack of Food: Never True Current Housing: I Have Housing Concerned About Future Housing: No Difficulty Paying Gas/Electric Bills: No Difficulty Paying for Meds: No Currently Unemployed: No Education: Associate Degree Difficulty w/ Childcare or Family Care: No Living arrangements: alone 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 There is no relevant family history pertinent to the patient complaint. Exam Narrative: GENERAL: This is a well-nourished, well-developed adult, in no apparent distress. They are non ill-appearing, nontoxic appearing. HEAD: normocephalic, atraumatic. EYES: Sclera clear/white. Conjunctiva normal. Vision is grossly intact. Extraocular movements intact EARS: External ears normal, auditory canals clear and without drainage, TMs normal without perforation. Hearing grossly intact. NOSE: External nose normal with no obvious nasal discharge, nasal turbinates erythematous bilaterally with yellow discharge present. Sinus tenderness to palpation to the maxillary and frontal sinuses. THROAT: Mucous membranes moist, posterior pharynx erythemic without swelling. No exudate. Postnasal drip present Uvula midline. NECK: Neck supple, non-tender without lymphadenopathy, masses or thyromegaly. CARDIOVASCULAR: Regular rate and rhythm without murmurs, gallops, or rubs. RESPIRATORY: Clear to auscultation. Breath sounds equal bilaterally. No wheezes, rales, or rhonchi. SKIN: warm, Dry, intact with no suspicious lesions or rash, good texture and turgor. NEURO: awake, alert, and oriented to person, place and time. There were no obvious focal neurologic abnormalities. EXTREMITIES: No joint tenderness, effusion, or edema noted. BACK: Nontender without deformity. No CVA tenderness. Course Course Emergency Course: Portions of this record may have been created with voice recognition software Level of Care: Express Care Visit Vital Signs Vital signs: Reviewed MDM - URI/Sore Throat MDM Narrative Medical decision making narrative: Rapid strep negative. Throat Culture pending. Given patient's sudden worsening of symptoms is likely she has developed a bacterial sinusitis. Will treat empirically with Augmentin. Will prescribe patient benzonatate for cough prescribed albuterol inhaler as needed for cough or shortness of breath. Discussed physical exam findings. Advised supportive measures and signs/symptoms to go to the ER. Pt is appropriate for outpt treatment and f/u. Differential Diagnosis Differential diagnosis: Likely upper respiratory infection, sinusitis and viral infection Lab Data Attestation: I reviewed the patient's lab results. Labs: Lab Results 04/08/25 Range/Units 09:24 POC Grp A Strep Screen Negative (Negative) Critical Care Time Critical Care Time Critical Care Time: No Discharge Plan Discharge Clinical Impression: Sinusitis Qualifiers: Sinusitis location: unspecified location Chronicity: acute Recurrence: non- recurrent Qualified Code(s): J01.90 - Acute sinusitis, unspecified Patient Disposition: Home Condition: Stable Instructions: Antibiotic Form, Sinusitis (ED) Additional Instructions: Your rapid strep is negative. A throat culture will be sent off in you will be contacted if the strep is positive. Take the antibiotics as directed and complete the course even if you start to feel better. You may use a Neti pot saline rinse 3 times a day with lukewarm distilled water. Take albuterol inhaler as directed. Take the Tessalon Perles as directed. Continue to take Tylenol or Motrin for pain. Use a humidifier or vaporizer at night. Drink plenty of water. 8-10 glasses per day. Use flonase 2 times per day for 5 days then as needed Take mucinex 2 times per day and be sure to take with 8oz of water. Follow up with Primary provider if not getting better. If her symptoms worsen or you develop any difficulty breathing, nausea, vomiting, or any other concerns please go to the ER immediately Patient Language: Arabic Prescriptions: New benzonatate 100 mg capsule 100 mg PO TID PRN (Reason: cough) Qty: 20 0RF albuterol sulfate [Ventolin HFA] 90 mcg/actuation HFA aerosol inhaler 2 puff inhalation QID PRN (Reason: shortness of breath or wheezing) Qty: 8.5 0RF amoxicillin-pot clavulanate 875-125 mg tablet 1 tablet PO Q12H 7 Days Qty: 14 0RF No Action levonorgestrel-ethinyl estrad 0.15 mg-30 mcg (91) tablets,dose pack,3 month 30 tablet PO DAILY tramadol 50 mg tablet 50 mg PO Q6H PRN (Reason: pain) Qty: 30 0RF albuterol sulfate [Ventolin HFA] 90 mcg/actuation HFA aerosol inhaler 1 inh inhalation Q4H PRN (Reason: shortness of breath or wheezing) Qty: 8.5 2RF dicyclomine 10 mg capsule 10 mg PO BID PRN (Reason: abdominal pain) Qty: 60 12RF montelukast [Singulair] 10 mg tablet 10 mg PO DAILY Qty: 90 1RF mesalamine [Lialda] 1.2 gram tablet,delayed release (DR/EC) 2.4 g PO DAILY 90 Days Qty: 180 3RF budesonide-formoterol 160-4.5 mcg/actuation HFA aerosol inhaler 2 puff inhalation Q12H Qty: 10.2 5RF Follow-up/Referrals: Magali Huang MD [Primary Care Provider] - Time of Disposition: 09:51
== END 2025-04-08 09:55 | disposition home or self-care (01) ==
PROVIDERS: PCP Family Medicine
DX: J01.90 Acute sinusitis, unspecified (principal); R01.1 Cardiac murmur, unspecified; J45.909 Unspecified asthma, uncomplicated
CPT/HCPCS: 87081; 87880; 99213; G0463

== ENCOUNTER 2025-05-09 08:55 | Outpatient (CLI) | payer OTHER, SELFPAY ==
--- OUTSIDE RECORDS SUMMARY | 2025-05-09 09:20 | XMS_ITS | Patient Health Record ---
Author Organization [facility] Address [address] [place], [place] [id number] Care Team Providers Care Ripsaw Grader Name Role Phone SalMagali Primary Care Provider Unavailabl e Allergies Allergen [...] Insured Coverage Start Date Coverage End Date [facility] [address] [address] [place] [address] [id number] SHANICE COOPER Self - patient is the insured Medical (General) History Medical History History ICD Code Asthma/Bronchitis Leg/Feet cramps Surgical History Surgery Date(Month/Year) section 09/2022
--- OUTSIDE RECORDS SUMMARY | 2025-05-09 09:20 | XMS_ITS | Clinical Summary ---
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
--- NOTE | 2025-05-28 14:55 | P.SLEEP_ITS ---
Sleep Study - Home Unattended Date of Study: 05/09/25 Ordering Provider: Lakshmi Alonzo DO Interpreting Provider: Lakshmi Alonzo DO Home Sleep Study Type: Watch PAT Height: 1.7 m Weight: 103.873 kg Body Mass Index: 35.9 Neck Circumference (inches): 15 [place]: 16 Reason for Sleep Study Excessive daytime sleepiness Sleep History The patient is a 39-year-old female who had a sleep study ordered by her sleep medicine doctor for evaluation of sleep apnea. The patient admits to excessive daytime sleepiness and difficulty staying asleep. She denies snoring loudly. She denies interruptions in breathing while asleep. She denies choking or gasping. She does have trouble breathing on her back. She does have morning headaches. She does have a dry or sore mouth/throat in the morning. She denies nocturnal heartburn. She denies having a previous sleep study. She urinates more than 3 times throughout the night. She denies having difficulty falling asleep. She does have difficulty staying asleep. If she wakes up throughout the night, she does have difficulty returning to sleep. She denies any hypnotic or sedative use. She denies feeling anxious about sleeping. She does feel tired or sleepy during the day. She does feel tired in the morning. She does feel an urge to fall asleep during the day. She does feel drowsy while driving. She denies sleep paralysis and cataplexy. She denies hypnagogic/hypnopompic hallucinations. She does clench or grind her teeth. She denies kicking or jerking her legs excessively. She denies having a restless feeling in her legs. She goes to bed at 10:30 p.m. on workdays and at 11:45 p.m. on her days off. She gets 5 and a half hours of sleep per night. Her sleep is somewhat restorative on days off. She denies taking any planned naps. She denies dream enactment behavio r. She denies sleepwalking. She consumes 1 to 2 cups of a caffeinated beverage per day. She denies tobacco and alcohol use. She denies exercising on a regular basis. [facility] Past Medical History Medical History Acid indigestion Diarrhea Piriformis syndrome Leukopenia Request for sterilization Breech presentation Heart murmur Asthma Ulcerative colitis Surgical History Surgical History History of 2020 Family History Family History Father Diabetes mellitus Hypertension Cerebrovascular accident Heart disease Grandparent Diabetes mellitus Hypertension Heart disease Social History Social History Smoking status: Never smoker Second hand tobacco smoke exposure: No Alcohol intake: current Drinks per week: 2 Substance use: never Substance use type: does not use Lack of Transportation: No Lack of Food: Never True Current Housing: I Have Housing Concerned About Future Housing: No Difficulty Paying Gas/Electric Bills: No Difficulty Paying for Meds: No Currently Unemployed: No Education: Associate Degree Difficulty w/ Childcare or Family Care: No Living arrangements: alone 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 (if verbalized by the patient): Female Sexual Orientation (if Verbalized by the Patient): Straight or Heterosexual Spiritual care concerns: No Agree to blood products: Yes Medications Home Medications ?Medication ?Instructions ?Recorded ?Confirmed ?Type tramadol 50 mg tablet 50 mg PO Q6H PRN pain #30 tabs 12/01/22 04/10/25 Rx levonorgestrel 0.15 mg-ethinyl 30 tablet PO DAILY 03/22/23 04/10/25 History estradiol 30 mcg tablets,3 mos pack(91) mesalamine 1.2 gram tablet,delayed 2.4 g (2 x 1.2 gram) PO DAILY 3 10/16/24 04/10/25 Rx release (Lialda) months #180 tabs dicyclomine 10 mg capsule 10 mg PO BID PRN abdominal pain 11/12/24 04/10/25 Rx #60 caps albuterol sulfate 90 mcg/actuation 1 inh inhalation Q4H PRN shortness 02/12/25 04/10/25 Rx aerosol inhaler (Ventolin HFA) of breath or wheezing #8.5 grams budesonide-formoterol HFA 160 2 puff inhalation Q12H #10.2 grams 02/13/25 04/10/25 Rx mcg-4.5 mcg/actuation aerosol inhaler albuterol sulfate 90 mcg/actuation 2 puff inhalation QID PRN 04/08/25 04/10/25 Rx aerosol inhaler (Ventolin HFA) shortness of breath or wheezing #8.5 grams amoxicillin 875 mg-potassium 1 tablet PO Q12H 7 days #14 tabs 04/08/25 04/10/25 Rx clavulanate 125 mg tablet benzonatate 100 mg capsule 100 mg PO TID PRN cough #20 caps 04/08/25 04/10/25 Rx eszopiclone 1 mg tablet (Lunesta) 1 mg PO QHS #2 tabs 04/10/25 04/10/25 Rx montelukast 10 mg tablet 10 mg PO DAILY #90 tabs 04/25/25 Rx (Singulair) Sleep Procedure The sleep study was completed using [employer] a technically adequate device with seven channels: peripheral arterial tone, actigraphy, body position, snore, respiratory movement, pulse oximetry, sleep staging, and heart rate. Prior to using the device, the patient received verbal and written instructions for its application and was provided with the help desk phone number for additional telephonic instruction with 24-hour availability of qualified personnel to answer questions. The study was scored using CMS guidelines. Sleep Architecture The total recording time is 7 hrs, 38 min. The total sleep time is 5 hrs, 59 min. Sleep latency is 17 minutes. REM latency is 36 minutes. The patient had 13 episodes of waking. Sleep architecture shows 24.5% deep sleep, 37.7% light sleep, and (as % Total Sleep Time) showed NREM (Light 37.7%; Deep 24.5%), and a 37.8% stage REM. The patient spent 41.4% of total sleep time in the supine position. Sleep efficiency was 78.38. Respiratory Analysis The overall AHI (pAHI 4%:) is 6.9. The overall AHI (pAHI 3%:) is 15.7. The central AHI is 0.2. The AHI was 9.5 in NREM and 26.1 in REM sleep. The AHI was 18.6 in Supine and 13.7 in Non-supine sleep. Percent of Hussein Vences respirations is 0.0. Oximetry Data The oxygen desaturation index (JANICE 4%:) is 6.9. The mean saturation is 95%, and the lowest saturation is 71%. Time spent with saturation < 88% is 0.1 minutes. Snoring Profile Snoring average intensity is 41 dB. The patient snored above 45 decibels for 27.6 minutes, 7.7% of sleep time. Cardiac Profile The average pulse rate is 74 beats per minutes. The lowest pulse rate is 57 bpm. The highest pulse rate reported is 107 bpm. Atrial fibrillation was not detected. Premature beats occur <0.1 per minute. Assessment and Plan Assessment and Plan (1) TORIE (obstructive sleep apnea): Code(s): G47.33 - Obstructive sleep apnea (adult) (pediatric) Status: Acute Assessment and Plan: The patient had an overall AHI of 6.9 with desaturation down to 71%. This is consistent with mild sleep apnea. Due to the patient's excessive daytime sleepiness, she qualifies for treatment. I recommend that the patient be prescribed Resmed AirSense 11 AutoPAP 5-15 cm H2O, CPAP mask/filters/tubing and heated humidity. A mandibular advancement device is also an acceptable treatment option. This should be used with all episodes of sleep.? Compliance should be reviewed within 31-90 days of starting therapy for usage greater than 4 hours per night greater than 70% of the nights. The patient should be asked about symptoms such as?excessive daytime sleepiness, quality of sleep, decreased nocturia, increased?mental functioning such as memory, mood, and concentration. Data The data obtained during this sleep study is adequate for interpretation. Certification This sleep study has been reviewed by a board certified sleep medicine physician.
[2025-05-28 15:31] VITALS: BMI 35.9
== END 2025-05-10 12:33 | disposition home or self-care (01) ==
LOC: ANHCSM 08:56
PROVIDERS: PCP Family Medicine; Visit Provider Family Medicine
DX: G47.33 Obstructive sleep apnea (adult) (pediatric) (principal)
CPT/HCPCS: 95800

== ENCOUNTER 2025-05-20 09:52 | Outpatient (CLI) | payer OTHER, SELFPAY ==
--- NOTE | ~2025-05-20 | MM_ITS ---
EXAMINATION: MM screening do BI w ryan HISTORY: Screening mammogram TECHNIQUE: Craniocaudal and mediolateral oblique 3-D tomosynthesis images were obtained and synthetic 2-D images were generated. CAD analysis was submitted and interpreted. COMPARISON: 10/10/2023, 01/25/2018 BREAST PARENCHYMAL COMPOSITION:Not Dense. The breasts are almost entirely fatty FINDINGS: No suspicious mass, calcification, or architectural distortion are identified in either kavita ast to suggest malignancy. There has been no suspicious interval change. IMPRESSION: No mammographic evidence of malignancy. Recommend routine screening mammography in one year. BI-RADS Category 1: Negative Reviewed, dictated and finalized at location .
== END 2025-05-20 09:53 | disposition home or self-care (01) ==
LOC: MICIMG 09:54
PROVIDERS: PCP Family Medicine; Visit Provider Nurse Practitioner
DX: Z12.31 Encounter for screening mammogram for malignant neoplasm of breast (principal)
CPT/HCPCS: 77063; 77067

== ENCOUNTER 2025-08-16 10:30 | Outpatient (CLI) | payer OTHER, SELFPAY ==
--- OUTSIDE RECORDS SUMMARY | 2025-08-16 10:33 | XMS_ITS | Encounter Summary ---
Author Organization [facility] Address 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
--- OUTSIDE RECORDS SUMMARY | 2025-08-16 10:33 | XMS_ITS | Clinical Summary ---
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
--- OUTSIDE RECORDS SUMMARY | 2025-08-16 10:33 | XMS_ITS | Clinical Summary ---
Author Organization 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 Gender Identity Not on file Sexual Orientation Not on file Plan of Treatment Health Maintenance Due Date Last Done Comments DTAP/TDAP/TD VACCINES (1 - Tdap) 2003 HEPATITIS B VACCINES (1 of 3 - 19+ 3-dose series) 05/29 HPV/Cotest (21-29) 2005 HPV VACCINES (1 - 3-dose SCDM series) 2011 HPV/Cotest (30-65) 2014 CERVICAL CANCER SCREENING 11/14/2020 PAP SMEAR 11/14/2020 11/14/2017 BREAST CANCER SCREENING 2024 INFLUENZA VACCINE (#1) 2025 12/09/2021 Insurance [id number] OPTIONS PPO [id number] Care Teams Dock Manager Relationship Specialty Start Date End Date Davonte Leonard MD [address] [place] [address] PCP - General Family Practice 07/06/21
--- OUTSIDE RECORDS SUMMARY | 2025-08-16 10:33 | XMS_ITS | Encounter Summary ---
Author Organization [facility] Address [address] [place] [address] Care Team Providers Care Roller Maker Name Role Phone Davonte Leonard MD Primary Care Provider [phone] Encounter Details Date Type Department Care Team (Late st Contact Info) Description 02/21/2002 Outpatient Historical [facility] [employer] - Medical [facility] [address] [facility] [address] [address] Juve Patel Social History Tobacco Use Types Packs/Day Years Used Date Smoking Tobacco: Never Assessed Comments Unknown Sex and Gender Information Value Date Recorded Sex Assigned at Not on file 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
--- OUTSIDE RECORDS SUMMARY | 2025-08-16 10:33 | XMS_ITS | Patient Health Record ---
Author Organization [facility] Address [address] [place], [place] [id number] Care Team Providers Care Retail And Promotions Coordinator Name Role Phone SalMagali Primary Care Provider [...] Date End Date Status Dulera 100-5 MCG/ACT Inhalation; Duratio n: 30 Days Active Montelukast Sodium 10 MG Oral; Duration: 30 Days Active Levonorgest-Eth Estrad 91-Day 0.15-0.03 MG Oral; Duration: 91 Days Active Mesalamine 1.2 GM Oral; Duration: 30 Days Active Plan Of Treatment Pending Test Test Name Order Date Liver Function Test (LFT) 05/13/2023 Insurance Providers Payer Name Payer Address Payer Phone Subscriber Number Group Number Insured Name Patient Relationship to Insured Coverage Start Date Coverage End Date [facility] [address] [address] [place] [id number] SHANICE LOZOYA Self - patient is the insured Medical (General) History Medical History History ICD Code Asthma/Bronchitis Leg/Feet cramps Surgical History Surgery Date(Month/Year) section 09/2022
--- OUTSIDE RECORDS SUMMARY | 2025-08-16 10:33 | XMS_ITS | Encounter Summary ---
Author Organization [facility] Address 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 - [address] [place] [address] Osmin Perez MD [address] [place] [phone] Social History Tobacco Use Types Packs/Day Years Used Date Smoking Tobacco: Never Assessed Comments Unknown Sex and Gender Information Value Date Recorded Sex Assigned at Not on file 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
--- OUTSIDE RECORDS SUMMARY | 2025-08-16 10:33 | XMS_ITS | Encounter Summary ---
Author Organization [facility] Address 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 - [address] [place] [address] Osmin Perez MD [address] [place] [phone] Social History Tobacco Use Types Packs/Day Years Used Date Smoking Tobacco: Never Assessed Comments Unknown Sex and Gender Information Value Date Recorded Sex Assigned at Not on file 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
[2025-08-16 10:59] LABS: Hematocrit 40.1 % (37.0-47.0); Hemoglobin 13.0 g/dL (12.0-15.0); Immature Granulocyte Percent A 0.3 % (0-0.5); Lymphocytes Absolute Auto 1.44 K/mm3 (0.9-3.2); Mean Corpuscular HGB Conc 32.4 g/dl (32-36); Mean Corpuscular Hemoglobin 29.6 pg (26-34); Mean Corpuscular Volume 91.3 fl (80-100); Nucleated Red Blood Cells Absolute Auto 0.000 K/mm3 (0.0-0.012); Nucleated Red Blood Cells Perc 0.0 % (0.0-0.2); Platelet Count Result 303 k/mm3 (150-375); Red Blood Count 4.39 M/mm3 (4.2-5.4); White Blood Count 3.9 K/mm3 (4.5-10.0)
[2025-08-16 11:09] LABS: Hemoglobin A1C 6.1 % (<5.7)
[2025-08-16 11:25] LABS: Iron 99 ug/dL (37-170)
[2025-08-16 11:27] LABS: Alanine Aminotransferase 33 U/L (6-35); Albumin Level 4.2 g/dL (3.5-5.1); Alkaline Phosphatase 60 U/L (38-126); Anion Gap 7 mmol/L (4-12); Aspartate Amino Transferase 34 U/L (14-36); Bilirubin,Total 0.8 mg/dL (0.2-1.3); Blood Urea Nitrogen 13 mg/dL (7-17); Calcium 8.8 mg/dL (8.4-10.2); Carbon Dioxide 24 mmol/L (22-30); Chloride 105 mmol/L (98-107); Cholesterol 157 mg/dL (0-200); Estimated Glomerular Filt Rate > 60; Glucose 86 mg/dL (65-110); HDL Direct 54 mg/dL; Potassium 3.7 mmol/L (3.4-5.0); Sodium 136 mmol/L (137-145); Total Protein 7.5 g/dL (6.3-8.2); Triglycerides 71 mg/dL (<150)
[2025-08-16 11:34] LABS: Percent Iron Saturation 22 % (20-50)
[2025-08-16 11:58] LABS: Thyroid Stimulating Hormone Reflex 0.314 uIU/mL (0.465-4.68)
[2025-08-16 12:07] LABS: Ferritin 104.00 ng/mL (6.24-137)
[2025-08-16 12:37] LABS: Vitamin B12 271.0 pg/mL (239-931)
[2025-08-16 16:53] LABS: Free T4 Free Thyroxine Reflex 0.80 ng/dL (0.78-2.19)
[2025-08-16 17:34] LABS: Total Triiodothyronine (T3) 1.34 NG/ML (0.82-1.58)
== END 2025-08-16 10:31 | disposition home or self-care (01) ==
LOC: ANHLAB 10:31
PROVIDERS: PCP Family Medicine; Visit Provider Family Medicine
DX: D64.9 Anemia, unspecified (principal); E78.2 Mixed hyperlipidemia; E11.9 Type 2 diabetes mellitus without complications; R53.83 Other fatigue; E55.9 Vitamin D deficiency, unspecified; Z86.2 Personal history of diseases of the blood and blood-forming organs and certain disorders involving the immune mechanism
CPT/HCPCS: 36415; 80053; 80061; 82306; 82607; 82728; 82746; 83036; 83540; 83550; 84439; 84443; 84480; 85025

== ENCOUNTER 2025-11-19 09:12 | Outpatient (CLI) | payer OTHER, SELFPAY ==
--- OUTSIDE RECORDS SUMMARY | 2025-11-19 09:30 | XMS_ITS | Clinical Summary ---
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 Gender Identity Not on file Sexual Orientation Not on file Plan of Treatment Health Maintenance Due Date Last Done Comments DTAP/TDAP/TD VACCINES (1 - Tdap) 2003 HEPATITIS B VACCINES (1 of 3 - 19+ 3-dose series) 05/29 HPV/Cotest (21-29) 2005 HPV/Cotest (30-65) 2014 CERVICAL CANCER SCREENING 11/14/2020 PAP SMEAR 11/14/2020 11/14/2017 BREAST CANCER SCREENING 2024 INFLUENZA VACCINE (#1) 2025 12/09/2021 HPV VACCINES (No Doses Required) Completed Insurance [facility] OPTIONS PPO [id number] Care Teams Panel Raiser Operator Relationship Specialty Start Date End Date Davonte Leonard MD [address] [place] [address] PCP - General Family Practice 07/06/21
--- OUTSIDE RECORDS SUMMARY | 2025-11-19 09:30 | XMS_ITS | Encounter Summary ---
Author Organization [facility] Address 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 TESTER - Medical [facility] [address] [facility] [address] [address] Juve Patel Social History Tobacco Use Types Packs/Day Years Used Date Smoking Tobacco: Never Assessed Comments Unknown Sex and Gender Information Value Date Recorded Sex Assigned at Not on file 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
--- OUTSIDE RECORDS SUMMARY | 2025-11-19 09:30 | XMS_ITS | Encounter Summary ---
Author Organization [facility] Address 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
--- OUTSIDE RECORDS SUMMARY | 2025-11-19 09:30 | XMS_ITS | Encounter Summary ---
Author Organization [facility] Address [address] [place] [address] Care Team Providers Care Farm Specialist Name Role Phone Davonte Leonard MD Primary Care Provider [phone] Encounter Details Date Type Department Care Team (Late st Contact Info) Description 02/21/2002 Outpatient Historical [facility] ULTRASOUND TECH - Medical [facility] [address] [facility] [address] [address] Juve Patel Social History Tobacco Use Types Packs/Day Years Used Date Smoking Tobacco: Never Assessed Comments Unknown Sex and Gender Information Value Date Recorded Sex Assigned at Not on file 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
--- OUTSIDE RECORDS SUMMARY | 2025-11-19 09:30 | XMS_ITS | Data Portability ---
Author Organization [facility] [address] [place] [address] Assessment No assessment recorded. Plan of Treatment Reminders Order Date Submit Date Provider Last Modified By Organization Details Last Modified Time Details Appointments None recorded. Lab rapid strep group A, throat 2015 016 [email or web address] In-Office Order, Internal Use Only DO Not Attach Compendium DO Not Attach Compendium, Do Not Delete/merge, [id number] 6 11:06:25 Referral None recorded. Procedures None recorded. Surgeries None recorded. Imaging None recorded. Medication Orders acetaminop hen 500 mg capsule 2015 016 [facility] [id number], [address], 6 11:31:28 amoxicilli n 500 mg tablet 2015 016 [id number] [facility] [address], [address], 6 11:06:25 Diflucan 150 mg tablet 2015 016 [facility] [address], [address], 6 11:06:25 Adult Robitussin Peak Cold DM Max 10 mg-200 mg/5 mL oral liquid 2015 016 [email or web address] [facility] [address] In [facility] [address] [facility], [place], [address], 6 11:06:25 Patient TargetsNo targets recorded. Patient Instructions Encounter Date Encounter Id Patient Instructions Last Modified By Organization Details Last Modified Time 03/20/2016 [id number] strep throat: care instructions [email or web address] Not available 03/22/2016 11:16:09 Reason for Referral None Reported. Results Created Date Observation Date Name Description Value Unit Range Abnormal Flag Note LastModifiedBy Organization Detail LastModifiedTime 03/20/20 16 03/20/2016 rapid strep group A, throa t Strep positi ve Not Available In-Office Order Internal Use Only DO Not Attach Compendium DO Not Attach Compendium, Do Not Delete/merge, [id number] 03/20/2016 10:57:29 Result Notes None recorded. Problems Name Problem SNOMED Code Status Onset Date Resolution Date Notes Provider Name and Address Organization Details Recorded Time Streptococcal sore throat 08125971 Active Radha AMEE [facility] 6 11:06:25 Problem Notes None recorded. Medical Equipment None Reported. Allergies Allergen ID Allergen Name Allergen Category Reaction Reaction Severity Criticality Documentation Date Start Date Code Code System Note Provider Name and Address Organization Details Recorded Time 97110 aspirin medicatio n Not available Not available Not available 03/20/2016 1191 RxNorm Cliff Titus [place] [facility] 6 10:42:53 Medications Name Sig Start Date Stop Date [...] Respiratory rate Body mass index (BMI) Systolic And Diastolic Provider Name and Address Organization Details Last Updated DateTime 6 167.64 cm 96 /min 99.2 [degF] 21018.6 6475 g 20 /min 28.2 kg/m2 140/80 mm[Hg] Cliff Titus [facility] 6 10:42:53 Social History None recorded. Functional Status None recorded. Mental Status None recorded. Family History Nothing Reported. Medical History No medical history recorded. Gynecological HistoryNo gynecological history recorded. Obstetrics History GPAL:G 0 P 0 0 0 0 Past Encounters Encounter ID Performer Location Encounter Start Date Encounter Closed Date Diagnosis/Indication Diagnosis SNOMED-CT Code Diagnosis ICD10 Code Diagnosis IMO Codes Diagnosis Note [id number] Elpidio Richards MD [address] [phone] 03/20/2016 10:25:41 03/20/2016 13:12:00 Streptococcal sore throat 79100389 J02.0 Health Concerns Section Related Observation LastModified by Organization Detai ls LastModified Time None Recorded Concern Status LastModified by Organization Details LastModified Time None Recorded Advance Directives Directive None Recorded Payers Insurance Date Sequence Insurance Name Policy Number Policy Hagan Covered Member ID Hagan Member ID Guarantor Name 11/09/2016 SLIDING FEE SCHEDULE - DISCOUNT Batsheva Cooper Notes Date Note Type Note Provider Name and Address Organization Details Recorded Time 6 text/htm l Throat PainReported by PatientHPIFor associated symptoms, patient reportscoughing with mild sputum,nasal congestion, andpostnasal drip. For quality, patient reportsdull,aching, andsore. For severity, patient reportsmoderate. For context, patient reportsallergiesandsinus infection. For alleviating factors, patient reportsantihistamines. Radha barr, [facility] 03/20/2016 13:10:37 OBGyn Episode No OBEpisode recorded.
--- OUTSIDE RECORDS SUMMARY | 2025-11-19 09:30 | XMS_ITS | Clinical Summary ---
Author Organization 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
--- OUTSIDE RECORDS SUMMARY | 2025-11-19 09:30 | XMS_ITS | Encounter Summary ---
Author Organization [facility] Address 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
[2025-11-19 10:39] LABS: CRP 1.8 mg/dL (<1.0)
== END 2025-11-19 09:13 | disposition home or self-care (01) ==
LOC: ANHLAB 09:14
PROVIDERS: PCP Family Medicine; Visit Provider Nurse Practitioner Family
DX: K63.89 Other specified diseases of intestine (principal); R19.7 Diarrhea, unspecified
CPT/HCPCS: 36415; 85652; 86140